=== PATIENT | female | born 1990 | race Caucasian/White ===

== ENCOUNTER 2018-11-08 20:26 | Emergency (ER) | payer MEDICAID ==
[2018-11-08] MEDS ORDERED: ONDANSETRON HCL IV 4 MG/2 ML VIAL IVP ONE (20:49)
[2018-11-08] MEDS ORDERED: 0.9 % SODIUM CHLORIDE 1,000 ML BAG IV ONE (20:49)
[2018-11-08] MEDS ORDERED: MORPHINE SULFATE 5 MG/ML VIAL IVP ONE ×2 (20:49→21:51)
[2018-11-08] MEDS ORDERED: KETOROLAC 30 MG/ML VIAL IVP ONE (20:49)
--- NOTE | 2018-11-08 20:55 | Emergency Department Record ---
History of Present Illness - General Chief complaint: Flank Pain Stated complaint: RT FLANK PAIN/NECK STIFF/PAIN Time Seen by Provider: 11/08/18 20:43 Source: Patient Mode of Arrival: Ambulatory Limitations: No limitations - History of Present Illness Initial comments: 28 yo female presents with right flank pain that started about 3 hours ago. She states she has urinary frequency and discomfort over her bladder as well. She has had several renal stones in the past. No visible hematuria. No fever. She had nausea with vomiting. No rash. She has had about 4 days of upper neck pain. The pain started with waking. It is tight and hurts to move. She does not know the name of her urologist. MD Complaint: Other (right flank pain) Onset/Timin -: Days(s) Location: Suprapubic Radiation: L flank, R flank Severity: Severe Severity scale (1-10): 8 Quality: Sharp, Stabbing Consistency: Constant Improves with: None Worsens with: None Patient : No Associated Symptoms: Abdominal pain, Headaches, Nausea/vomiting - Related Data Sexually active: No Home Medications Medication Instructions Recorded Confirmed Last Taken Dextroamphetamine/Amphetamine 60 mg PO DAILY 11/08/18 11/08/18 11/08/18 [Dextroamp-Amphetamin 30 mg Tab] Oxycodone HCl/Acetaminophen 1 tab PO Q8H PRN 11/08/18 11/08/18 11/08/18 [Oxycodone/Acetaminophen 5mg/325mg] Previous Rx's Medication Instructions Recorded Cyclobenzaprine HCl [Flexeril] 10 mg PO TID #15 tablet 11/08/18 Allergies Allergy/AdvReac Type Severity Reaction Status Date / Time ketorolac [From Toradol] AdvReac HEADACHE Verified 11/08/18 20:52 Travel Screening - Travel/Exposure Within Last 30 Days Have you traveled within the last 30 days?: No - Travel Symptoms Symptom Screening: Headache, Vomiting Review of Systems Constitutional: Denies: Chills, Fever, Malaise, Weakness Eyes: Denies: Eye discharge ENT: Denies: Congestion, Throat pain Respiratory: Denies: Cough, Dyspnea, Hemoptysis, Wheezes Cardiovascular: Denies: Chest pain, Palpitations, Syncope Endocrine: Denies: Fatigue, Polydipsia, Polyuria Gastrointestinal: Reports: Abdominal pain, Nausea, Vomiting. Denies: Diarrhea Genitourinary: Reports: Dysuria, Frequency, Urgency. Denies: Hematuria Musculoskeletal: Reports: As per HPI, Back pain, Neck pain Skin: Denies: Bruising, Change in color, Rash Neurological: Denies: Headache, Weakness Psychiatric: Denies: Anxiety Hematological/Lymphatic: Denies: Easy bleeding, Easy bruising Past Medical History - SOCIAL HISTORY Smoking Status: Current every day smoker Alcohol Use: Rare Drug Use: Occasional - RESPIRATORY Hx Respiratory Disorders: No - CARDIOVASCULAR Hx Cardio Disorders: Yes Hx Abnormal EKG: Yes Hx Cardiac Cath: Yes Hx Chest Pain: Yes Hx Irregular Heartbeat: Yes Hx Palpitations: Yes - NEURO Hx Neuro Disorders: Yes Hx Headaches: Yes - GI Hx GI Disorders: Yes Hx Irritable Bowel: Yes - Hx Genitourinary Disorders: Yes Hx Renal Disease: Yes Hx UTI: Yes - ENDOCRINE Hx Endocrine Disorders: No - MUSCULOSKELETAL Hx Musculoskeletal Disorders: Yes Hx Arthritis: Yes - PSYCH Hx Psych Problems: No - HEMATOLOGY/ONCOLOGY Hx Hematology/Oncology Disorders: No Family Medical History Any Significant Family History?: No Family Hx Comment (NOT TO BE USED IN PLACE OF ITEMS BELOW): denies Physical Exam - General General Appearance: Alert, Oriented x3, Cooperative, No acute distress Limitations: No limitations - Head Head exam: Atraumatic, Normal inspection - Eye Eye exam: Normal appearance, PERRL. negative: Conjunctival injection, Scleral icterus - ENT ENT exam: Normal exam, Mucous membranes moist Ear exam: Normal external inspection Nasal Exam: Normal inspection Mouth exam: Normal external inspection - Neck Neck exam: Normal inspection, Full ROM, Tenderness, Other (tender paraspinal muscle upper cervical, normal palpation, full ROM but with some discomfort, no mass, no swollen lymph nodes). negative: Lymphadenopathy, Meningismus, Thyromeg alirio - Respiratory Respiratory exam: Normal lung sounds bilaterally. negative: Respiratory distress - Cardiovascular Cardiovascular Exam: Regular rate, Normal rhythm, Normal heart sounds Peripheral Pulses: 2+: Radial (R), Radial (L) - GI/Abdominal GI/Abdominal exam: Soft, Tenderness (mildly tender suprapubic and right lower quadrant). negative: Distended, Guarding - Rectal Rectal exam: Deferred - exam: Deferred - Extremities Extremities exam: Normal inspection, Normal capillary refill. negative: Calf tenderness, Pedal edema, Tenderness - Back Back exam: Reports: CVA tenderness (R), Muscle spasm, Tenderness. Denies: CVA tenderness (L), Rash noted - Neurological Neurological exam: Alert, Normal gait, Oriented X3, Reflexes normal. negative: Motor sensory deficit (No weakness to bilateral upper extremities, no radiation down the arm, no numbness or tingling) - Psychiatric Psychiatric exam: Normal affect, Normal mood. negative: Agitated, Anxious - Skin Skin exam: Dry, Intact, Normal color, Warm Course Vital Signs 11/08/18 20:33 Temperature 97.9 F Pulse Rate 103 H Respiratory 18 Rate Blood Pressure 155/86 Pulse Ox 100 - Reevaluation(s) Reevaluation #1: 11/08/18 21:48 The labs were reviewed Normal CBC and CMP UA with some contamination but N-, LE- 11/08/18 21:49 HCG is negative 11/08/[address] demonstrated multiple bilateral intrarenal stones but no ureteral stones or HN. No acute process. The results were discusses with the patient. She does have urology follow up arranged already We discussed the neck pain as well. On examination it is consistent with musculo-skeletal. She does not have signs of mass, neurologic or radicular s ymptoms. I recommend calling her PCP tomorrow for a recheck. She could consider outpatient MRI if the pain does not resolve. No acute or emergent findings on examination, labs, UA or CT DC home with recommendations for close outpatient follow up with her PCP in [place]. Medical Decision Making - Lab Data Result diagrams: 11/08/18 20:50 11/08/18 20:50 Disposition Disposition: Discharge Clinical Impression: Right flank pain Cervical strain, acute Qualifiers: Encounter type: initial encounter Qualified Code(s): S16.1XXA - Strain of muscle, fascia and tendon at neck level, initial encounter Disposition: Home, Self-Care Condition: (1) Good Instructions: Cervical Strain (ED), Flank Pain (ED) Additional Instructions: Call your doctor for the next available follow up appointment Review this ER visit and the tests performed with your family doctor Return to the ER for a recheck if worse, any new concerns or questions Take a copy of your CT scan to review with your Urologist at your follow up appointment Take the prescriptions provided as directed Prescriptions: Cyclobenzaprine HCl [Flexeril] 10 mg PO TID #15 tablet Forms: Patient Portal Access Time of Disposition: 22:32 Quality - Quality Measures Quality Measures: N/A - Blood Pressure Screening Does Patient Have Any of the Following: No Blood Pressure Classification: Pre-Hypertensive BP Reading Systolic Measurement: 155 Diastolic Measurement: 86 Screening for High Blood Pressure: < Pre-Hypertensive BP, F/U Documented > [[id number]] Pre-Hypertensive Follow-up Interventions: Referral to alternative/primary care queta licona
[2018-11-08 20:59] LABS: URINE APPEARANCE CLEAR; URINE BILIRUBIN SMALL (NEGATIVE); URINE BLOOD MODERATE (NEGATIVE); URINE COLOR YELLOW; URINE GLUCOSE (UA) NEGATIVE (NEGATIVE); URINE KETONE 15 mg/dL (NEGATIVE); URINE LEUKOCYTE ESTERASE NEGATIVE (NEGATIVE); URINE NITRITE NEGATIVE (NEGATIVE); URINE PROTEIN NEGATIVE (NEGATIVE); URINE UROBILINOGEN 0.2 E.U./dL (0.20 - 1.00)
[2018-11-08 20:59] LABS: ABSOLUTE NEUTROPHIL COUNT 6.02; BASO % 0.4 % (0-6); EOS % 0.3 % (0-6); GRAN % 61.1 % (47-80); HEMATOCRIT 41.4 % (35.0-47.0); HEMOGLOBIN 13.9 gm/dl (11.6-16.0); LYMPH % 30.9 % (16-45); MEAN CORPUSCULAR HEMOGLOBIN 30.9 pg (27-33); MEAN CORPUSCULAR HGB CONC 33.6 g/dl (32-36); MEAN PLATELET VOLUME 10.5 fl (7.4-10.4); MONO % 7.3 % (0-9); PLATELET COUNT 290 K/uL (130-400); RED CELL DISTRIBUTION WIDTH 12.4 % (11.5-14.5); WHITE BLOOD COUNT W/O DIFF 9.9 K/uL (4.2-12.2)
[2018-11-08 21:08] LABS: URINE BACTERIA 2+; URINE MUCUS HEAVY; URINE WBC 0 - 2 (0-2/hpf)
[2018-11-08 21:09] LABS: HCG,QUALITATIVE URINE NEGATIVE (NEGATIVE)
[2018-11-08 21:14] LABS: BLOOD UREA NITROGEN 11 mg/dL (6-20); CREATININE 0.6 mg/dL (0.5-0.9); EST GLOMERULAR FILTRATION RATE > 60 mL/min
[2018-11-08 21:17] LABS: GLUCOSE,RANDOM 113 mg/dL (74-109)
[2018-11-08 21:20] LABS: ALB/GLOB RATIO 1.6 (1.1-1.8); ALBUMIN 4.9 g/dL (4.0-5.0); ALKALINE PHOSPHATASE 67 U/L (35-104); ALT/SGPT 12 U/L (<33); AST/SGOT 18 U/L (10.0-35.0)
[2018-11-08] MEDS ORDERED: CYCLOBENZAPRINE 10MG TABLET PO ONE (22:31)
--- NOTE | 2018-11-10 06:57 | CT SCAN REPORT ---
EXAM: CT SCAN ABDOMEN/PELVIS WO CONTRAST HISTORY: RIGHT FLANK PAIN, BACK PAIN, AND SUPRAPUBIC PAIN ALL OF WHICH BEGAN TODAY. MICROSCOPIC HEMATURIA. PREVIOUS HISTORY OF KIDNEY STONES. TECHNIQUE: Standard CT imaging of the abdomen and pelvis was performed without contrast. COMPARISON: July 27, 2012. FINDINGS: There is minor dependent atelectasis at both lung bases. The lung bases are otherwise clear. There is a stable tiny cyst within the left hepatic lobe. The liver parenchyma is otherwise normal. The gallbladder is surgically absent. There is no biliary ductal dilatation. The pancreas, spleen, and adrenal glands are normal. There are numerous small, nonobstructing stones within both kidneys. The largest within the right kidney is located at the upper pole and measures 4 mm. The largest within the left kidney measures 3 mm. There is no obstructing calculus or hydronephrosis. The ureters are unremarkable. Phleboliths are present within the pelvis. The aorta is normal in caliber. There is no retroperitoneal lymphadenopathy. The stomach and epigastrium appear normal. The large and small bowel loops are normal. There are no focal inflammatory changes. There is no pneumoperitoneum or ascites. The uterus and adnexa are normal. The urinary bladder is normal. There are no acute osseous abnormalities. IMPRESSION: 1. NUMEROUS NONOBSTRUCTING STONES WITHIN BOTH KIDNEYS. THE LARGEST WITHIN THE RIGHT KIDNEY MEASURES 4 MM AND THE LARGEST WITHIN THE LEFT KIDNEY 3 MM. THERE IS NO HYDRONEPHROSIS OR OBSTRUCTING CALCULUS. 2. NO ACUTE INTRA-ABDOMINAL PATHOLOGY. JOB NUMBER: [id number] MTDD
== END 2018-11-08 22:40 | disposition home or self-care (01) ==
LOC: ER 20:26
DX: S16.1XXA Strain of muscle, fascia and tendon at neck level, initial encounter (principal); R10.31 Right lower quadrant pain; R11.2 Nausea with vomiting, unspecified; R51 Headache; X58.XXXA Exposure to other specified factors, initial encounter; F17.210 Nicotine dependence, cigarettes, uncomplicated
CPT/HCPCS: 74176; 80053; 81001; 81025; 85025; 96374; 96375; 96376; 99284; J2405; J7030